=== PATIENT | female | born 1980 | race Caucasian/White ===

== ENCOUNTER 2017-08-29 19:58 | Emergency (ER) | payer BC ==
[~2017-08-29] VITALS: Ht 175.3 cm; Wt 111.1 kg
[2017-08-29 19:58] VITALS: BP 140/79; PULSE 83; RESP 18; TEMP 97.5; O2SAT 99
[~2017-08-29 19:58] MED LIST: AMOX500C2 PO; BCP; BUSP7.5T6; DICY10CA59; SELE200C; VITA400C68
[2017-08-29 21:19] LABS: BILIRUBIN,URINE NEGATIVE (NEGATIVE); BLOOD, URINE NEGATIVE (NEGATIVE); CLARITY/URINE CLEAR (CLEAR); COLOR,URINE YELLOW (YELLOW); GLUCOSE,URINE NEGATIVE (NEGATIVE); KETONES,URINE NEGATIVE (NEGATIVE); LEUKOCYTE ESTERASE ,URINE TRACE (NEGATIVE); NITRITE, URINE NEGATIVE (NEGATIVE); PROTEIN URINE NEGATIVE (NEGATIVE); UROBILINOGEN,URINE 0.2 (0.2-1.0)
[2017-08-29 21:41] LABS: RBC,URINE NONE SEEN /HPF (0-3)
[2017-08-29 21:42] LABS: BACTERIA,URINE FEW /HPF (None Seen); MUCUS,URINE 1+ /LPF (None Seen)
[2017-08-29 22:00] LABS: BASOPHILS # (AUTO) 0.1 K/uL (0.0-0.2); BASOPHILS % (AUTO) 1.2 % (0.0-2.0); EOSINOPHILS % (AUTO) 0.5 % (0.0-4.0); HEMATOCRIT 37.3 % (36-48); HEMOGLOBIN 12.5 g/dL (12.0-16.0); LYMPHOCYTES # (AUTO) 2.5 K/uL (1.0-5.5); LYMPHOCYTES % (AUTO) 30.9 % (20.5-51.5); MEAN CORPUSCULAR HEMOGLOBIN 29 pg (27-31); MEAN CORPUSCULAR HGB CONC 34 % (32-36); MEAN CORPUSCULAR VOLUME 87 fL (79.0-98.0); MONOCYTES # (AUTO) 0.5 K/uL (0.0-1.0); MONOCYTES % (AUTO) 6.7 % (1.7-9.3); NEUTROPHILS # (AUTO) 4.8 K/uL (1.8-7.7); NEUTROPHILS % (AUTO) 60.7 % (40.0-70.0); PLATELET COUNT (AUTO) 267 K/uL (130-430); RED BLOOD CELL COUNT(AUTO) 4.27 MIL/uL (4.2-6.2); RED CELL DISTRIBUTION WIDTH 12.3 % (9.0-15.0); WHITE BLOOD COUNT (AUTO) 7.9 K/uL (4.8-10.8)
[2017-08-29 22:14] LABS: CALCIUM 9.5 mg/dL (8.4-11.0); CREATININE 0.7 mg/dL (0.55-1.30); POTASSIUM 3.9 mmol/L (3.5-5.1)
[2017-08-29 22:25] LABS: ALBUMIN 3.6 g/dL (3.4-4.8); TOTAL BILIRUBIN 0.2 mg/dL (0.0-1.0)
[2017-08-29 23:30] VITALS: BP 132/74; PULSE 80; RESP 16; TEMP 97.4; O2SAT 99
== END 2017-08-29 23:30 | disposition home or self-care (01) ==
LOC: SED 19:58
DX: O23.41 Unspecified infection of urinary tract in pregnancy, first trimester (principal); Z3A.01 Less than 8 weeks gestation of pregnancy; O09.511 Supervision of elderly primigravida, first trimester
CPT/HCPCS: 36415; 76801; 76817; 80053; 81000-TC; 81025; 84702-TC; 85025; 86900; 86901; 87086; 99285

== ENCOUNTER 2017-10-04 09:40 | Emergency (ER) | payer BC ==
[~2017-10-04] VITALS: Ht 175.3 cm; Wt 103.0 kg
[~2017-10-04 09:40] MED LIST changes: -BCP; -BUSP7.5T6; -DICY10CA59; -SELE200C; -VITA400C68
[2017-10-04 09:45] VITALS: BP_SYST 122
[2017-10-04] MEDS ORDERED: NACL 0.9% 1,000 ML IV ONE (10:03)
[2017-10-04] MEDS ORDERED: ONDANSETRON HCL 4 MG/2 ML VIAL IVP ONE (10:15)
[2017-10-04 10:17] LABS: BILIRUBIN,URINE 1+ (NEGATIVE); CLARITY/URINE HAZY (CLEAR); COLOR,URINE YELLOW (YELLOW); GLUCOSE,URINE NEGATIVE (NEGATIVE); KETONES,URINE 1+ (NEGATIVE); LEUKOCYTE ESTERASE ,URINE NEGATIVE (NEGATIVE); NITRITE, URINE NEGATIVE (NEGATIVE); PROTEIN URINE 1+ (NEGATIVE); UROBILINOGEN,URINE 0.2 (0.2-1.0)
[2017-10-04 10:18] LABS: BLOOD, URINE TRACE (NEGATIVE)
[2017-10-04 10:32] LABS: BACTERIA,URINE MODERATE /HPF (None Seen); MUCUS,URINE 2+ /LPF (None Seen); URINE AMORPHOUS URATE 1+ /HPF (None Seen); WBC,URINE 0-3 /HPF (0-3)
[2017-10-04 10:52] LABS: CALCIUM 9.2 mg/dL (8.4-11.0); CREATININE 0.76 mg/dL (0.55-1.30); POTASSIUM 3.7 mmol/L (3.5-5.1)
[2017-10-04] MEDS ORDERED: PROCHLORPERAZINE EDISYLATE 10 MG/2 ML VIAL IVP ONE (12:15)
[2017-10-04 12:44] VITALS: BP_SYST 107
== END 2017-10-04 12:44 | disposition home or self-care (01) ==
LOC: SED 09:40
DX: O21.0 Mild hyperemesis gravidarum (principal); Z3A.10 10 weeks gestation of pregnancy
CPT/HCPCS: 36415; 80048; 81000; 81025; 96361; 96374; 96375; 99284; J0780; J2405; J7030

== ENCOUNTER 2019-07-08 17:08 | Inpatient (IN) | payer BC ==
[~2019-07-08] VITALS: Ht 175.3 cm; Wt 104.8 kg
[2019-07-08 17:27] VITALS: BP_SYST 136
[2019-07-08] MEDS ORDERED: NACL 0.9% 1,000 ML IV ONE (17:34)
[2019-07-08] MEDS ORDERED: KETOROLAC TROMETHAMINE 30 MG VIAL IVP ONE (17:45)
[2019-07-08 18:17] LABS: BASOPHILS % (AUTO) 0.5 % (0.0-2.0); EOSINOPHILS # (AUTO) 0.1 K/uL (0.0-0.4); EOSINOPHILS % (AUTO) 1.3 % (0.0-4.0); HEMATOCRIT 35.8 % (36-48); HEMOGLOBIN 11.8 g/dL (12.0-16.0); LYMPHOCYTES # (AUTO) 1.7 K/uL (1.0-5.5); LYMPHOCYTES % (AUTO) 23.7 % (20.5-51.5); MEAN CORPUSCULAR HEMOGLOBIN 30 pg (27-31); MEAN CORPUSCULAR HGB CONC 33 % (32-36); MEAN CORPUSCULAR VOLUME 90 fL (79.0-98.0); MONOCYTES # (AUTO) 0.6 K/uL (0.0-1.0); MONOCYTES % (AUTO) 8.2 % (1.7-9.3); NEUTROPHILS # (AUTO) 4.8 K/uL (1.8-7.7); NEUTROPHILS % (AUTO) 66.3 % (40.0-70.0); PLATELET COUNT (AUTO) 241 K/uL (130-430); RED CELL DISTRIBUTION WIDTH 13.5 % (9.0-15.0); WHITE BLOOD COUNT (AUTO) 7.2 K/uL (4.8-10.8)
[2019-07-08 18:20] LABS: INR 0.9 (0.8-1.2); PROTHROMBIN TIME 9.6 SECS (9.5-12.5)
[2019-07-08] MEDS ORDERED: CLOPIDOGREL BISULFATE 75 MG TABLET PO ONE (18:30)
[2019-07-08] MEDS ORDERED: ASPIRIN 81 MG TAB.CHEW PO ONE (18:30)
[2019-07-08 18:50] LABS: CREATININE 0.9 mg/dL (0.55-1.30); POTASSIUM 3.4 mmol/L (3.5-5.1)
[2019-07-08 18:56] LABS: ALBUMIN 3.3 g/dL (3.4-4.8)
[2019-07-08 19:12] LABS: TOTAL BILIRUBIN 0.1 mg/dL (0.0-1.0)
[2019-07-08 20:32] VITALS: BP_SYST 116
[2019-07-08] MEDS ORDERED: NITROGLYCERIN 0.4 MG TAB.SUBL SL PRN (21:15)
[2019-07-08 22:19] VITALS: BP_SYST 110
[2019-07-08 22:27] VITALS: BP_SYST 99
[2019-07-09] VITALS: BP_SYST 111
[2019-07-09] MEDS: KETOROLAC TROMETHAMINE 15 MG VIAL IVP PRN ×3 (00:04→20:43)
[2019-07-09 06:44] LABS: CALCIUM 8.5 mg/dL (8.4-11.0); CREATININE 0.77 mg/dL (0.55-1.30); POTASSIUM 3.9 mmol/L (3.5-5.1)
[2019-07-09 08:00] VITALS: BP_SYST 123
[2019-07-09] MEDS: ASPIRIN 81 MG TABLET(ECOTRIN) PO SCH (08:18)
[2019-07-09] MEDS: ENOXAPARIN SODIUM 40 MG/0.4 ML SYRINGE SUBCUT SCH (08:25)
[2019-07-09 11:25] VITALS: BP_SYST 114
[2019-07-09 15:20] VITALS: BP_SYST 110
[2019-07-09 20:34] VITALS: BP_SYST 124
[2019-07-10 01:01] VITALS: BP_SYST 99
[2019-07-10 08:04] VITALS: BP_SYST 109
[2019-07-10] MEDS ORDERED: IOHEXOL 350 mgI/mL, 150 ML INFUS..BTL IV ONE (08:11)
[2019-07-10] MEDS: ASPIRIN 81 MG TABLET(ECOTRIN) PO SCH (08:40)
[2019-07-10] MEDS: ENOXAPARIN SODIUM 40 MG/0.4 ML SYRINGE SUBCUT SCH (08:41)
[2019-07-10 11:19] VITALS: BP_SYST 116
[2019-07-10 15:21] VITALS: BP_SYST 115
[2019-07-10 19:41] VITALS: BP_SYST 131
== END 2019-07-10 20:16 | disposition home or self-care (01) | DRG 206 ==
LOC: SED 17:08 → STU 19:14
PROVIDERS: ADMIT Family Medicine; ATTEND Family Medicine
DX: M94.0 Chondrocostal junction syndrome [Tietze] (principal); Z90.49 Acquired absence of other specified parts of digestive tract; Z98.891 History of uterine scar from previous surgery
CPT/HCPCS: 36415; 71045; 71275; 80048; 80053; 82150-TC; 82550-TC; 83605; 83690-TC; 83735-TC; 84484; 85025; 85610-TC; 85730-TC; 87040-TC; 93005; 93306; 99285; G0378; J1650; J1885; Q9967

== ENCOUNTER 2021-03-03 13:58 | Emergency (ER) | payer BC ==
[~2021-03-03] VITALS: Ht 175.3 cm; Wt 104.3 kg
[2021-03-03 14:04] VITALS: BP_SYST 145
--- NOTE | 2021-03-03 14:30 | NUR ---
DR LINO IN TO ASSESS
[2021-03-03 14:44] LABS: BASOPHILS % (AUTO) 0.5 % (0.0-2.0); EOSINOPHILS % (AUTO) 0.4 % (0.0-4.0); HEMATOCRIT 38.1 % (36-48); HEMOGLOBIN 12.7 g/dL (12.0-16.0); LYMPHOCYTES # (AUTO) 1.5 K/uL (1.0-5.5); LYMPHOCYTES % (AUTO) 26.4 % (20.5-51.5); MEAN CORPUSCULAR HEMOGLOBIN 30 pg (27-31); MEAN CORPUSCULAR HGB CONC 33 % (32-36); MEAN CORPUSCULAR VOLUME 90 fL (79.0-98.0); MONOCYTES # (AUTO) 0.4 K/uL (0.0-1.0); MONOCYTES % (AUTO) 6.3 % (1.7-9.3); NEUTROPHILS # (AUTO) 3.9 K/uL (1.8-7.7); NEUTROPHILS % (AUTO) 66.4 % (40.0-70.0); PLATELET COUNT (AUTO) 232 K/uL (130-430); RED BLOOD CELL COUNT(AUTO) 4.24 MIL/uL (4.2-6.2); RED CELL DISTRIBUTION WIDTH 13.4 % (9.0-15.0); WHITE BLOOD COUNT (AUTO) 5.8 K/uL (4.8-10.8)
[2021-03-03 15:02] LABS: ANION GAP 9 (5-15); CALCIUM 9.1 mg/dL (8.4-11.0); CHLORIDE 105 mmol/L (98-107); CREATININE 0.81 mg/dL (0.55-1.30); GLUCOSE 80 mg/dL (70-99); POTASSIUM 3.8 mmol/L (3.5-5.1); SODIUM SERUM 140 mmol/L (136-145); UREA NITROGEN, BLOOD 14 mg/dL (8-21)
[2021-03-03 15:04] LABS: GFR AFRICAN AMERICAN 101 mL/min (>90)
[2021-03-03 15:09] LABS: PROTHROMBIN TIME 10.3 SECS (9.5-12.5)
--- NOTE | 2021-03-03 15:15 | NUR ---
CALM, ALERT, NO DISTRESS, RESP UNLABORED, NO DISTRESS. DENIES CP/SOB
--- NOTE | 2021-03-03 16:11 | NUR ---
dr teixeira in to assess
[2021-03-03 16:24] VITALS: BP_SYST 137
--- NOTE | 2021-03-03 16:25 | NUR ---
Patient given written and verbal discharge instructions and verbalizes understanding. ER MD discussed with patient the results and treatment provided. Patient in stable condition. ID arm band removed. Patient educated on pain management and to follow up with PMD. Pain Scale Opportunity for questions provided and answered.
== END 2021-03-03 16:24 | disposition home or self-care (01) ==
LOC: SED 13:58
DX: S80.12XA Contusion of left lower leg, initial encounter (principal); R07.89 Other chest pain; X58.XXXA Exposure to other specified factors, initial encounter; Y93.89 Activity, other specified; Y92.89 Other specified places as the place of occurrence of the external cause; Y99.8 Other external cause status
CPT/HCPCS: 36415; 71045; 80048; 84484; 85025; 85610-TC; 93005; 93971; 99285

== ENCOUNTER 2022-07-17 08:56 | Emergency (ER) | payer BC ==
[~2022-07-17] VITALS: Ht 175.3 cm; Wt 111.1 kg
[2022-07-17 09:00] VITALS: BP_SYST 111
--- NOTE | 2022-07-17 09:00 | NUR ---
Placed in room 1 . Placed on residential monitor, blood pressure machine and pulse oximeter. To gown for exam. Side rails up.
--- NOTE | 2022-07-17 09:05 | NUR ---
PT CAME IN FROM HOME C/O CP SINCE LAST NIGHT SHARP, BURNING THIS AM WITH INTERMITTANT PULLING SENSATION AND PRESSURE, WORSE WITH INHILATION. PT STATES ON ARRIVAL PAIN IS NOW 2/10. PT IS AMBULATORY, AAOX4, VSS
--- NOTE | 2022-07-17 09:22 | NUR ---
ER DR. DICK AT THE BEDSIDE EXAMINING PT
--- NOTE | 2022-07-17 09:35 | NUR ---
PORTABLE XRAY AT THE BEDSIDE
[2022-07-17] MEDS ORDERED: ACETAMINOPHEN 500 MG TABLET PO ONE (09:45)
[2022-07-17] MEDS ORDERED: KETOROLAC TROMETHAMINE 30 MG VIAL IM ONE (09:45)
[2022-07-17 09:58] LABS: BASOPHILS % (AUTO) 0.5 % (0.0-2.0); EOSINOPHILS % (AUTO) 0.7 % (0.0-4.0); HEMATOCRIT 34.6 % (36-48); HEMOGLOBIN 11.7 g/dL (12.0-16.0); LYMPHOCYTES # (AUTO) 1.1 K/uL (1.0-5.5); LYMPHOCYTES % (AUTO) 19.8 % (20.5-51.5); MEAN CORPUSCULAR HEMOGLOBIN 30 pg (27-31); MEAN CORPUSCULAR HGB CONC 34 % (32-36); MEAN CORPUSCULAR VOLUME 87 fL (79.0-98.0); MONOCYTES # (AUTO) 0.4 K/uL (0.0-1.0); MONOCYTES % (AUTO) 7.3 % (1.7-9.3); NEUTROPHILS % (AUTO) 71.7 % (40.0-70.0); PLATELET COUNT (AUTO) 237 K/uL (130-430); RED BLOOD CELL COUNT(AUTO) 3.97 MIL/uL (4.2-6.2); RED CELL DISTRIBUTION WIDTH 13.5 % (9.0-15.0); WHITE BLOOD COUNT (AUTO) 5.6 K/uL (4.8-10.8)
[2022-07-17 10:07] LABS: ANION GAP 7 (5-15); CHLORIDE 104 mmol/L (98-107); CREATININE 0.76 mg/dL (0.55-1.30); GLUCOSE 96 mg/dL (70-99); POTASSIUM 3.9 mmol/L (3.5-5.1); SODIUM SERUM 139 mmol/L (136-145); UREA NITROGEN, BLOOD 14 mg/dL (8-21)
[2022-07-17 10:14] LABS: GFR AFRICAN AMERICAN 108 mL/min (>90)
--- NOTE | 2022-07-17 10:15 | NUR ---
FIRST CONTACT WITH PT, REPORT RECEIVED FROM TERESO ANSARI PT IN BED RESTING WITH MOTHER AT BEDSIDE. PT REPORTS 5-6/10 CHEST PAIN SINCE YESTERDAY, INTERMITTENT. DENIES CHEST PAIN AT THIS TIME. RESP EVEN AND UNLABORED. VSS. NSR. WILL CONT TO MONITOR
[2022-07-17 10:18] LABS: ALANINE AMINOTRANSFERASE 27 U/L (12-78); ALBUMIN 3.4 g/dL (3.4-4.8); ASPARTATE AMINOTRANSFERASE 17 U/L (10-37); CALCIUM 8.8 mg/dL (8.4-11.0); TOTAL BILIRUBIN 0.2 mg/dL (0.0-1.0)
[2022-07-17 12:34] VITALS: BP_SYST 110
--- NOTE | 2022-07-17 12:45 | NUR ---
DC INSTRUCTIONS DISCUSSED WITH PT. STRICT RETURN PRECAUTIONS GIVEN. QUESTIONS ANSWERED. VSS. DENIES CHEST PAIN AT THIS TIME. AMBULATORY WITH STEADY GAIT AND ACCOMPANIED BY MOTHER
== END 2022-07-17 12:46 | disposition home or self-care (01) ==
LOC: SED 08:56
DX: R07.89 Other chest pain (principal); R77.8 Other specified abnormalities of plasma proteins; R06.02 Shortness of breath; F41.9 Anxiety disorder, unspecified; Z79.899 Other long term (current) drug therapy
CPT/HCPCS: 99285; 71045; 80053; 85025; 84484; 36415; 93005; 81025; 96372; J1885

== ENCOUNTER 2023-07-13 05:19 | Emergency (ER) | payer BC ==
[~2023-07-13] VITALS: Ht 175.3 cm; Wt 112.9 kg
[2023-07-13 05:32] VITALS: BP_SYST 141; PULSE 77; RESP 19; TEMP 98; O2SAT 97
== END 2023-07-13 06:01 | disposition home or self-care (01) ==
LOC: SED 05:19
DX: S13.4XXA Sprain of ligaments of cervical spine, initial encounter (principal); F41.9 Anxiety disorder, unspecified; R07.9 Chest pain, unspecified; Z79.899 Other long term (current) drug therapy; X58.XXXA Exposure to other specified factors, initial encounter; Y93.89 Activity, other specified; Y92.89 Other specified places as the place of occurrence of the external cause; Y99.8 Other external cause status
CPT/HCPCS: 93005; 99283